=== PATIENT | female | born 1975 | race Two or more races ===

== ENCOUNTER 2017-01-01 10:35 | Inpatient (IN) | payer MEDICARE ==
[~2017-01-01] VITALS: Ht 172.7 cm; Wt 93.0 kg
[~2017-01-01 10:35] MED LIST: ALPR1TAB2 PO; AMLO10TA2 PO; BACL20TA PO; CARI350T PO; GABA600T2 PO; LISI40TA4 PO; METO100T3 PO; ZOLP10TA2 PO
--- NOTE | 2017-01-01 10:40 | NUR ---
AAOX3, CAME TO ER C/O LEFT UPPER EXTREMITY NUMBNESS AND WEAKNESS NOTED AT 0500. RR IS EVEN AND UNLABORED WITH NAD NOTED. SKIN IS WARM AND DRY. FACE SYMMETRICAL, SPEECH COHERENT. PATIENT ABLE TO MOVE ALL EXTREMITIES WITHOUT LIMITATION. DR LOMBARDI AT BS FOR YANET.
--- NOTE | 2017-01-01 10:48 | NUR ---
dr tobar ed provider spoke to dr rice tele neurologist.
[2017-01-01] MEDS ORDERED: IOHEXOL-350 100 ML VIAL IV ONE (10:51)
[2017-01-01 11:17] LABS: BASOPHILS % (AUTO) 0.4 % (0.0-2.0); EOSINOPHILS # (AUTO) 0.1 /CMM (0.0-0.7); EOSINOPHILS % (AUTO) 1.1 % (0.0-6.0); HEMATOCRIT 32 % (33-45); HEMOGLOBIN 10.6 g/dL (11.5-14.8); LYMPHOCYTES % (AUTO) 18.3 % (20.0-44.0); MEAN CORPUSCULAR HEMOGLOBIN 28 PG (26.0-33.0); MEAN CORPUSCULAR HGB CONC 33 g/dl (31.0-36.0); MEAN CORPUSCULAR VOLUME 84 fL (82-100); MONOCYTES # (AUTO) 0.7 /CMM (0.1-1.30); MONOCYTES % (AUTO) 6.3 % (2.0-12.0); NEUTROPHILS # (AUTO) 7.9 /CMM (1.8-8.9); NEUTROPHILS % (AUTO) 73.9 % (43.0-81.0); PLATELET COUNT (AUTO) 332 /CMM (150-450); RDW COEFFICIENT OF VARIATION 13.5 (11.5-15.0); RED BLOOD CELL COUNT(AUTO) 3.85 MIL/uL (4.0-5.2); WHITE BLOOD COUNT (AUTO) 10.8 K/uL (4.3-11.0)
[2017-01-01 11:25] LABS: CALCIUM, SERUM 7.9 mg/dL (8.5-10.1); CARBON DIOXIDE 21 mmol/L (21-32); CHLORIDE 109 mmol/L (98-107); CREATININE 0.7 mg/dL (0.6-1.3); GLUCOSE 121 mg/dL (74-106); POTASSIUM 3.2 mmol/L (3.5-5.1); SODIUM SERUM 140 mmol/L (136-145); UREA NITROGEN, BLOOD 13 mg/dL (7-18)
[2017-01-01] MEDS ORDERED: OMEP40CA37 PO (11:25)
[2017-01-01] MEDS ORDERED: METO-295 PO (11:25)
[2017-01-01] MEDS ORDERED: ALPR0.255 PO (11:25)
[2017-01-01] MEDS ORDERED: MORP30TA PO (11:25)
[2017-01-01] MEDS ORDERED: SERT50TA PO (11:25)
[2017-01-01] MEDS ORDERED: HYDR-552 PO (11:25)
[2017-01-01] MEDS ORDERED: METO25TA6 PO (11:25)
[2017-01-01] MEDS ORDERED: GABA-534 PO (11:25)
[2017-01-01] MEDS ORDERED: DESI10TA3 PO (11:25)
[2017-01-01] MEDS ORDERED: ONDA4TAB5 PO (11:25)
[2017-01-01] MEDS ORDERED: BACL10TA PO (11:25)
[2017-01-01] MEDS ORDERED: FLUT16SP16 NS (11:25)
[2017-01-01 11:29] LABS: INR 0.93 (0.87-1.13); PROTHROMBIN TIME 9.7 SECS (9.5-12.7)
[2017-01-01 11:30] LABS: ALANINE AMINOTRANSFERASE 85 U/L (12-78); ALKALINE PHOSPHATASE 206 U/L (46-116); ASPARTATE AMINOTRANSFERASE 158 U/L (15-37); BILIRUBIN,TOTAL 0.1 mg/dL (0.2-1.0); TOTAL PROTEIN, SERUM 6.8 g/dL (6.4-8.2)
--- NOTE | 2017-01-01 11:30 | NUR ---
Patient is resting comfortably in bed with eyes closed. Easily aroused. VSS
[2017-01-01 11:32] LABS: TROPONIN I < 0.017 ng/mL (0.00-0.056)
[2017-01-01] MEDS ORDERED: ASPIRIN 325 MG TABLET ONE (12:29)
[2017-01-01] MEDS ORDERED: FLUTICASONE PROPIONATE 16 GM BOTTLE NS PRN (12:30)
[2017-01-01] MEDS ORDERED: ALPRAZOLAM 0.25 MG TABLET PO PRN (12:30)
[2017-01-01] MEDS ORDERED: HYDROCODONE/APAP 5/325MG 1 EACH TABLET PO PRN (12:30)
[2017-01-01] MEDS ORDERED: ASPIRIN 325 MG TABLET PO ONE (12:30)
[2017-01-01] MEDS ORDERED: Medication Not On Formulary EA (Ondansetron Hcl (Zofran) 4 MG) PO PRN (12:30)
--- NOTE | 2017-01-01 12:39 | NUR ---
Report given to NAVDEEP Heller for [facility] Tele 112
[2017-01-01] MEDS ORDERED: MAG HYDROX/AL HYDROX/SIMETH 30 ML UDC PO PRN (13:00)
[2017-01-01] MEDS ORDERED: ACETAMINOPHEN 325 MG TABLET PO PRN (13:00)
[2017-01-01] MEDS ORDERED: Z GUARD REMEDY 2 OZ OINT TP PRN (13:00)
[2017-01-01] MEDS ORDERED: ZOLPIDEM TARTRATE 5 MG TABLET PO PRN (13:00)
[2017-01-01] MEDS ORDERED: MAGNESIUM HYDROXIDE 30 ML UDC PO PRN (13:00)
[2017-01-01 13:12] LABS: BASOPHILS % (AUTO) 0.2 % (0.0-2.0); EOSINOPHILS # (AUTO) 0.1 /CMM (0.0-0.7); EOSINOPHILS % (AUTO) 1.1 % (0.0-6.0); HEMATOCRIT 31 % (33-45); LYMPHOCYTES # (AUTO) 2.3 /CMM (0.8-4.8); LYMPHOCYTES % (AUTO) 19.2 % (20.0-44.0); MEAN CORPUSCULAR HEMOGLOBIN 27 PG (26.0-33.0); MEAN CORPUSCULAR HGB CONC 33 g/dl (31.0-36.0); MEAN CORPUSCULAR VOLUME 83 fL (82-100); MONOCYTES # (AUTO) 1.1 /CMM (0.1-1.30); MONOCYTES % (AUTO) 9.1 % (2.0-12.0); NEUTROPHILS # (AUTO) 8.4 /CMM (1.8-8.9); NEUTROPHILS % (AUTO) 70.4 % (43.0-81.0); PLATELET COUNT (AUTO) 306 /CMM (150-450); RDW COEFFICIENT OF VARIATION 14.6 (11.5-15.0); RED BLOOD CELL COUNT(AUTO) 3.68 MIL/uL (4.0-5.2)
[2017-01-01 13:33] LABS: INR 0.95 (0.87-1.13); PROTHROMBIN TIME 9.9 SECS (9.5-12.7)
[2017-01-01 13:36] LABS: CREATININE 0.6 mg/dL (0.6-1.3); POTASSIUM 3.5 mmol/L (3.5-5.1)
[2017-01-01 13:47] LABS: BILIRUBIN,TOTAL 0.1 mg/dL (0.2-1.0); TOTAL PROTEIN, SERUM 6.7 g/dL (6.4-8.2)
[2017-01-01 13:48] LABS: THYROID STIMULATING HORMONE 0.765 uIU/mL (0.358-3.74)
[2017-01-01] MEDS: GABAPENTIN 300 MG CAPSULE PO SCH ×2 (14:30→17:12)
[2017-01-01] MEDS: BACLOFEN (10 MG) 10 MG TABLET PO SCH ×2 (14:30→17:12)
[2017-01-01] MEDS: LISINOPRIL (20MG) 20 MG TABLET PO SCH (14:32)
[2017-01-01] MEDS: CARISOPRODOL 350 MG TABLET PO SCH ×3 (15:28→21:37)
[2017-01-01] MEDS: MORPHINE SULFATE SR 15 MG TABLET.SA PO SCH ×2 (15:28→21:00)
[2017-01-01] MEDS ORDERED: ENOXAPARIN SODIUM 40 MG/0.4 ML DISP.SYRIN SQ SCH (17:00)
[2017-01-01] MEDS ORDERED: MORPHINE SULFATE IR 15 MG TABLET PO SCH (17:00)
[2017-01-01] MEDS: METOCLOPRAMIDE HCL 10 MG TABLET PO PRN ×2 (17:34→21:43)
[2017-01-01] MEDS: BLOOD SUGAR DIAGNOSTIC 1 EACH STRIP IN SCH ×3 (17:34→21:52)
[2017-01-01] MEDS: ONDANSETRON HCL/PF 4 MG/2 ML VIAL IVP PRN ×2 (17:34→21:43)
--- NOTE | 2017-01-01 19:30 | NUR ---
SALES AND MARKETING COORDINATOR INITIAL NOTES RECEIVED PATIENT SITTING ON CHAIR AT BEDSIDE WITH FAMILY AT BEDSIDE. PATIENT AWAKE A/OX3. DENIES SOB. C/O 8/10 LEFT ARM AND UPPER AND LOWER BACK PAIN. ON TELE MONITOR SR 61. SKIN WARM AND DRY TO TOUCH. PATIENT ABLE TO WALK STEADY, NOTED LEFT ARM WEAKNESS. WITH RAC 18G PATENT AND INTACT. INFORMED PATIENT WILL PLACE OXYGEN FOR HEART SUPPORT. VERBALIZED UNDERSTANDING. SIDE RAILS UP AND LOCKED, BED KEPT AT LOWEST POSITION. CALL LIGHT KEPT WITHIN EASY REACH. WILL CONTINUE TO MONITOR.
[2017-01-01 20:00] VITALS: BP_SYST 119; BP_SYST 99; BP_DIAS 62; BP_DIAS 71
[2017-01-01] MEDS: METOPROLOL TARTRATE 50 MG TABLET PO SCH (21:00)
[2017-01-01] MEDS: HYDROCODONE/APAP 5/325MG 1 EACH TABLET PO PRN (21:38)
[2017-01-01] MEDS ORDERED: DESIPRAMINE HCL 10 MG TABLET PO SCH (22:00)
--- NOTE | 2017-01-01 22:26 | NUR ---
MS CONTIN NOT AVAILABLE AT UNIT MED CLEMENTINE, CALL RN WIDE AREA NETWORK ENGINEER, MEDICATION NOT AVAILABLE WITH HER, CHECKED ICU, MEDICATION ALSO NOT AVAILABLE. INFORMED WIDE AREA NETWORK ENGINEER. WILL INFORM PATIENT.
--- NOTE | 2017-01-01 23:41 | NUR ---
CONTINUITY OF CARE ENDORSED TO FLAVIO
[2017-01-02] VITALS: BP 106/63
[2017-01-02] MEDS: BLOOD SUGAR DIAGNOSTIC 1 EACH STRIP IN SCH ×5 (00:13→12:31)
[2017-01-02] MEDS: HYDROCODONE/APAP 5/325MG 1 EACH TABLET PO PRN ×2 (02:30→10:46)
[2017-01-02 04:00] VITALS: BP 104/68
[2017-01-02] MEDS: MORPHINE SULFATE SR 15 MG TABLET.SA PO SCH ×2 (05:00→12:32)
--- NOTE | 2017-01-02 05:26 | NUR ---
0500 MS CONTIN NOT GIVEN AT THIS TIME NOT IN PEXIS, PHARMACY TO DELIVER MEDICATION IN AM ENDORSED BY CLARENCE CHARGE NURSE, PT AWARE. DENIES PAIN AT THIS, NORCO GIVEN .
--- NOTE | 2017-01-02 06:45 | NUR ---
DIRECTOR BEHAVIORAL HEALTH CLOSING NOTES ENDORSED PATIENT ASLEEP IN BED. PATIENT AWAKE A/OX3. DENIES SOB. C/O 8/10 LEFT ARM AND UPPER AND LOWER BACK PAIN, NORCO PRN GIVEN WITH EFFECT. ON TELE MONITOR SR 61. SKIN WARM AND DRY TO TOUCH. PATIENT ABLE TO WALK STEADY, NOTED LEFT ARM WEAKNESS. WITH RAC 18G PATENT AND INTACT. INFORMED PATIENT INFORMED PT MS CONTIN FOR 0500 AM WILL BE GIVEN SOON PHARMACY IS OPEN. SIDE RAILS UP AND LOCKED, BED KEPT AT LOWEST POSITION. CALL LIGHT KEPT WITHIN EASY REACH. WILL CONTINUE TO MONITOR.
--- NOTE | 2017-01-02 07:05 | NUR ---
RAIL SETTER OPENING NOTES RECEIVED PT FROM NIGHTSHIFT NURSE IN STABLE CONDITION. PT IS A/O X3. NO SOB OR SIGNS OF DISTRESS NOTED. BREATHING IS EVEN AND UNLABORED. PT. REPORTS AN ACHING PAIN IN HER BACK RATED A 9/10. MILD-MODERATE WEAKNESS NOTED ON PT'S LEFT SIDE PARTICULARLY HER LEFT UPPER EXTREMITY. PT IS SINUS RHYTHM ON THE TELE MONITOR WITH A HR OF 72. IV NOTED TO BE PATENT AND INTACT. NO REDNESS OR SIGN OF INFILTRATION NOTED. BED IN LOW LOCKED POSITION, SIDE RAILS UP X2, CALL LIGHT WITHIN REACH. WILL CONTINUE TO MONITOR.
[2017-01-02 07:22] LABS: BASOPHILS % (AUTO) 0.2 % (0.0-2.0); EOSINOPHILS # (AUTO) 0.2 /CMM (0.0-0.7); EOSINOPHILS % (AUTO) 2.1 % (0.0-6.0); HEMATOCRIT 30 % (33-45); HEMOGLOBIN 9.9 g/dL (11.5-14.8); LYMPHOCYTES # (AUTO) 2.7 /CMM (0.8-4.8); LYMPHOCYTES % (AUTO) 29.4 % (20.0-44.0); MEAN CORPUSCULAR HEMOGLOBIN 28 PG (26.0-33.0); MEAN CORPUSCULAR HGB CONC 33 g/dl (31.0-36.0); MEAN CORPUSCULAR VOLUME 83 fL (82-100); MONOCYTES % (AUTO) 11.2 % (2.0-12.0); NEUTROPHILS # (AUTO) 5.3 /CMM (1.8-8.9); NEUTROPHILS % (AUTO) 57.1 % (43.0-81.0); PLATELET COUNT (AUTO) 292 /CMM (150-450); RDW COEFFICIENT OF VARIATION 14.8 (11.5-15.0); RED BLOOD CELL COUNT(AUTO) 3.57 MIL/uL (4.0-5.2); WHITE BLOOD COUNT (AUTO) 9.3 K/uL (4.3-11.0)
[2017-01-02] MEDS ORDERED: PANTOPRAZOLE 40 MG TABLET.DR PO SCH (07:30)
[2017-01-02 07:36] LABS: CALCIUM, SERUM 7.9 mg/dL (8.5-10.1); CREATININE 0.5 mg/dL (0.6-1.3); MAGNESIUM 1.8 mg/dL (1.8-2.4); PHOSPHORUS 4.3 mg/dL (2.5-4.9); POTASSIUM 3.7 mmol/L (3.5-5.1)
[2017-01-02 08:00] VITALS: BP 109/64
[2017-01-02] MEDS: METOPROLOL TARTRATE 50 MG TABLET PO SCH (08:30)
[2017-01-02] MEDS: GABAPENTIN 300 MG CAPSULE PO SCH ×2 (08:30→12:34)
[2017-01-02] MEDS: BACLOFEN (10 MG) 10 MG TABLET PO SCH ×2 (08:30→12:30)
[2017-01-02] MEDS: LISINOPRIL (20MG) 20 MG TABLET PO SCH (08:31)
[2017-01-02] MEDS: METOCLOPRAMIDE HCL 10 MG TABLET PO PRN (08:36)
[2017-01-02] MEDS ORDERED: ASPIRIN 325 MG TABLET PO SCH (09:00)
[2017-01-02] MEDS ORDERED: AMLODIPINE BESYLATE 10 MG TABLET PO SCH (09:00)
[2017-01-02] MEDS ORDERED: SERTRALINE HCL 50 MG TABLET PO SCH (09:00)
[2017-01-02 12:00] VITALS: BP 123/70
[2017-01-02] MEDS ORDERED: CARISOPRODOL 350 MG TABLET PO SCH (12:00)
--- NOTE | 2017-01-02 13:33 | NUR ---
PERFORMANCE ENGINEERMETAL TEMPLATE MAKER NOTES PT WAS DISCHARGE FROM UNIT IN STABLE CONDITION. ALL NEEDS WERE MET DURING SHIFT AND ORDERS CARRIED OUT ACCORDINGLY. STROKE EDUCATION PROVIDED TO BOTH THE PATIENT AND HER FATHER. PT VERBALIZED UNDERSTANDING OF STROKE EDUCATION ALONG WITH DISCHARGE INSTRUCTIONS. ALL DISCHARGE PAPERWORK WAS SIGNED BY PT. ALL BELONGINGS TAKE HOME WITH PT. PT LEFT VIA PRIVATE VEHICLE DRIVEN BY HER FATHER.
== END 2017-01-02 17:38 | disposition home or self-care (01) | DRG 74 ==
LOC: ER 10:39 → TELE1 12:35
PROVIDERS: ADMIT Internal Medicine; ATTEND Internal Medicine
DX: G62.9 Polyneuropathy, unspecified (principal); I10 Essential (primary) hypertension; R53.1 Weakness; E66.9 Obesity, unspecified; G89.4 Chronic pain syndrome; G93.2 Benign intracranial hypertension; F17.210 Nicotine dependence, cigarettes, uncomplicated; K21.9 Gastro-esophageal reflux disease without esophagitis; Z98.84 Bariatric surgery status; D64.9 Anemia, unspecified; R74.0 Nonspecific elevation of levels of transaminase and lactic acid dehydrogenase [LDH]; Z68.31 Body mass index [BMI] 31.0-31.9, adult; E87.6 Hypokalemia
CPT/HCPCS: 36415; 70450-TC; 70496-TC; 70498-TC; 71010-TC; 80048-TC; 80053-TC; 80061-TC; 80076-TC; 82962-TC; 83735-TC; 83880; 84100-TC; 84443-TC; 84484-TC; 84703-TC; 85025-TC; 85652-TC; 85730-TC; 87081-TC; 92611-TC; A4606; J1650; J2405; J8597; Q9967; Z7610

== ENCOUNTER 2018-05-17 12:56 | Emergency (ER) | payer MEDICARE ==
[~2018-05-17] VITALS: Ht 167.6 cm; Wt 74.8 kg
[~2018-05-17 12:56] MED LIST changes: +ALPR0.255 PO; -ALPR1TAB2 PO; -AMLO10TA2 PO; +AMLO10TA7 PO; +BACL10TA PO; -BACL20TA PO; +DESI10TA3 PO; +FLUT16SP16 NS; +GABA-534 PO; -GABA600T2 PO; +HYDR-4384 PO; +METO-295 PO; -METO100T3 PO; +METO25TA6 PO; +MORP30TA PO; +OMEP40CA37 PO; +ONDA4TAB5 PO; +SERT50TA PO
--- NOTE | 2018-05-17 13:25 | NUR ---
BIB MOTHER FOR SYNCOPAL EPISODE YESTERDAY MORNING, ALSO C/O MID STERNAL CHEST PAIN, RADIATING THROUGH TO THE BACK. TO ER BED 8, HOOKED TO MONIOTR, AWAITING MD HOLT
--- NOTE | 2018-05-17 13:37 | NUR ---
ADITYA ROUSE AT BEDSIDE
[2018-05-17 13:54] LABS: BASOPHILS % (AUTO) 0.6 % (0.0-2.0); EOSINOPHILS % (AUTO) 1.2 % (0.0-6.0); HEMATOCRIT 32 % (33-45); HEMOGLOBIN 9.8 g/dL (11.5-14.8); LYMPHOCYTES # (AUTO) 2.4 /CMM (0.8-4.8); MEAN CORPUSCULAR HGB CONC 30 g/dl (31.0-36.0); MEAN CORPUSCULAR VOLUME 72 fL (82-100); MONOCYTES # (AUTO) 0.6 /CMM (0.1-1.30); MONOCYTES % (AUTO) 10.1 % (2.0-12.0); NEUTROPHILS # (AUTO) 2.4 /CMM (1.8-8.9); NEUTROPHILS % (AUTO) 44.1 % (43.0-81.0); PLATELET COUNT (AUTO) 349 /CMM (150-450); RED BLOOD CELL COUNT(AUTO) 4.49 MIL/uL (4.0-5.2); WHITE BLOOD COUNT (AUTO) 5.5 K/uL (4.3-11.0)
[2018-05-17] MEDS ORDERED: IV NS 0.9% 1,000 ML BAG IV ONE (14:00)
[2018-05-17 14:08] LABS: CALCIUM, SERUM 8.5 mg/dL (8.5-10.1); CARBON DIOXIDE 28 mmol/L (21-32); CHLORIDE 106 mmol/L (98-107); CREATININE 0.7 mg/dL (0.6-1.3); GLUCOSE 99 mg/dL (74-106); SODIUM SERUM 140 mmol/L (136-145); UREA NITROGEN, BLOOD 23 mg/dL (7-18)
[2018-05-17 14:16] LABS: ALANINE AMINOTRANSFERASE 134 U/L (12-78); ALBUMIN 3.5 g/dL (3.4-5.0); ALKALINE PHOSPHATASE 213 U/L (46-116); ASPARTATE AMINOTRANSFERASE 72 U/L (15-37); BILIRUBIN,DIRECT 0.1 mg/dL (0.0-0.2); BILIRUBIN,TOTAL 0.1 mg/dL (0.2-1.0); TOTAL PROTEIN, SERUM 7.5 g/dL (6.4-8.2)
[2018-05-17 14:27] LABS: APPEARANCE,URINE BLOODY (CLEAR); BILIRUBIN,URINE MODERATE (NEGATIVE); BLOOD, URINE Large Ery/uL (NEGATIVE); COLOR,URINE Red (YELLOW); KETONES,URINE 15 (NEGATIVE); LEUKOCYTE ESTERASE ,URINE Large (NEGATIVE); NITRITE, URINE Negative (NEGATIVE); PH,URINE 5.5 (5.0-8.0); PROTEIN,URINE >=300 mg/dl (NEGATIVE); UGLUCOSE Negative (NEGATIVE)
[2018-05-17 14:39] LABS: BACTERIA,URINE Few /HPF (None Seen); RBC,URINE TOO NUMEROUS TO COUN /HPF (0-2); SQUAMOUS EPITHELIAL CELL,UR Few /HPF (None Seen); WBC,URINE 21-50 /HPF (0-3)
--- NOTE | 2018-05-17 16:50 | NUR ---
IV removed. Catheter intact and site benign. Pressure and 4x4 applied to site. No bleeding noted.Patient discharged to home in stable condition. Written and verbal after care instructions given. Patient verbalizes understanding of instruction.
[2018-05-17 16:51] VITALS: BP 125/72
== END 2018-05-17 16:52 | disposition home or self-care (01) ==
LOC: ER 12:57
DX: R55 Syncope and collapse (principal); N39.0 Urinary tract infection, site not specified; I10 Essential (primary) hypertension; D64.9 Anemia, unspecified; G89.29 Other chronic pain; Z98.890 Other specified postprocedural states; Z88.8 Allergy status to other drugs, medicaments and biological substances; Z88.1 Allergy status to other antibiotic agents; Z91.040 Latex allergy status; Z79.899 Other long term (current) drug therapy
CPT/HCPCS: 36415; 71045; 80048; 80076; 81001; 83690; 84484; 84703; 85025; 85730; 87086; 93005; 96360; 99284; A4606; J7030; 81000-TC

== ENCOUNTER 2022-04-12 20:38 | Inpatient (IN) | payer MEDICARE, OTHER ==
[~2022-04-12] VITALS: Ht 167.6 cm; Wt 88.0 kg
[~2022-04-12 20:38] MED LIST changes: +AMLO-213 PO; -AMLO10TA7 PO; +LISI40TA13 PO; -LISI40TA4 PO; +OMEP40CA21 PO; -OMEP40CA37 PO
[2022-04-12] MEDS ORDERED: IV LR 1000 ML 1,000 ML IV ONE ×2 (22:00→23:00)
[2022-04-12 22:26] LABS: ALBUMIN 2.6 g/dL (3.4-5.0); BILIRUBIN,DIRECT 0.2 mg/dL (0.0-0.2); BILIRUBIN,TOTAL 0.3 mg/dL (0.2-1.0); CALCIUM, SERUM 6.5 mg/dL (8.5-10.1); CREATININE 7.3 mg/dL (0.6-1.3); POTASSIUM 5.4 mmol/L (3.5-5.1); TOTAL PROTEIN, SERUM 6.7 g/dL (6.4-8.2)
[2022-04-12 22:40] LABS: BASOPHILS # (AUTO) 0.1 K/uL (0.0-0.2); BASOPHILS % (AUTO) 0.4 % (0.0-2.0); EOSINOPHILS % (AUTO) 0.6 % (0.0-6.0); HEMATOCRIT 33 % (33-45); HEMOGLOBIN 9.9 g/dL (11.5-14.8); LYMPHOCYTES # (AUTO) 2.1 K/uL (0.8-4.8); LYMPHOCYTES % (AUTO) 11.1 % (20.0-44.0); MEAN CORPUSCULAR HGB CONC 30 g/dl (31.0-36.0); MEAN CORPUSCULAR VOLUME 73 fL (82-100); MONOCYTES % (AUTO) 5.3 % (2.0-12.0); NEUTROPHILS # (AUTO) 15.7 K/uL (1.8-8.9); NEUTROPHILS % (AUTO) 82.6 % (43.0-81.0); PLATELET COUNT (AUTO) 344 K/uL (150-450); RED BLOOD CELL COUNT(AUTO) 4.53 MIL/uL (4.0-5.2); WHITE BLOOD COUNT (AUTO) 19.1 K/uL (4.3-11.0)
[2022-04-12] MEDS ORDERED: PIPERACILLIN /TAZOBACTAM 3.375 G VIAL IV ONE (22:57)
[2022-04-12] MEDS ORDERED: PIPERACILLIN /TAZOBACTAM 3.375 G in IV D5W 50 ML IV ONE (23:00)
[2022-04-12 23:09] LABS: BILIRUBIN,URINE 1+ (NEGATIVE); COLOR,URINE YELLOW (YELLOW); LEUKOCYTE ESTERASE ,URINE NEGATIVE (NEGATIVE); NITRITE, URINE NEGATIVE (NEGATIVE); PH,URINE 5.5 (5.0-8.0); PROTEIN,URINE 3+ mg/dl (NEGATIVE); UGLUCOSE NEGATIVE (NEGATIVE); UROBILINOGEN,URINE 0.2 EU/dL (0.2)
[2022-04-12 23:18] LABS: SITE, VBG Other; VBG COHb 1.2 %; VBG MetHb 0.3 %; VBG O2Hb 60.9 %; VBG OXYGEN SATURATION 61.8 %
[2022-04-12 23:55] LABS: BACTERIA,URINE Moderate /HPF (None Seen)
[2022-04-12 23:56] LABS: HYALINE CASTS, URINE Rare /LPF (None Seen)
[2022-04-13] MEDS ORDERED: SODIUM BICARBONATE SYR 50 MEQ/50 ML DISP.SYRIN IV ONE
[2022-04-13] MEDS ORDERED: IV LR 500 ML IV ONE (00:30)
[2022-04-13] MEDS ORDERED: FOSI40TA5 PO (00:54)
[2022-04-13] MEDS ORDERED: DOXY100C2 PO (00:54)
[2022-04-13] MEDS ORDERED: Sodium Bicarbonate 150 MEQ in IV NS 0.9% 1,000 ML IV PRN (01:00)
[2022-04-13] MEDS ORDERED: Z GUARD REMEDY 4 OZ OINT TP PRN (01:00)
[2022-04-13 01:24] LABS: BAND % (MANUAL) 1 % (0.0-5.0); LYMPHOCYTES % (MANUAL) 16 % (16-48); MONOCYTES % (MANUAL) 5 % (0-11.0); NEUTROPHILS % (MANUAL) 78 (42-76)
[2022-04-13 02:03] LABS: CREATININE, URINE 161.1 MG/DL (30.0-125.0)
[2022-04-13] MEDS ORDERED: SODIUM BICARBONATE SYR 50 MEQ/50 ML DISP.SYRIN ONE (02:10)
[2022-04-13 02:16] LABS: URINE TOTAL PROTEIN 611.4 mg/dL (0-11.9)
[2022-04-13] MEDS ORDERED: CEFTRIAXONE 1 G VIAL ONE (02:48)
[2022-04-13] MEDS: CEFTRIAXONE 1 G in IV D5W 50 ML IV SCH ×2 (02:50→21:45)
[2022-04-13 04:00] VITALS: BP 101/82
[2022-04-13] MEDS ORDERED: METRONIDAZOLE 500MG/ NS 100ML 100 ML IV ONE (05:22)
[2022-04-13] MEDS: METRONIDAZOLE 500MG/ NS 100ML 500 MG in PREMIX 1 EA IV SCH ×3 (05:25→20:30)
[2022-04-13] MEDS ORDERED: Sodium Bicarbonate 150 MEQ in IV NS 0.9% 1,000 ML IV SCH (06:17)
[2022-04-13 07:40] LABS: BASOPHILS % (AUTO) 0.3 % (0.0-2.0); EOSINOPHILS % (AUTO) 0.9 % (0.0-6.0); HEMATOCRIT 31 % (33-45); LYMPHOCYTES # (AUTO) 1.9 K/uL (0.8-4.8); LYMPHOCYTES % (AUTO) 16.7 % (20.0-44.0); MEAN CORPUSCULAR HGB CONC 29 g/dl (31.0-36.0); MEAN CORPUSCULAR VOLUME 79 fL (82-100); MONOCYTES # (AUTO) 0.6 K/uL (0.1-1.30); MONOCYTES % (AUTO) 5.4 % (2.0-12.0); NEUTROPHILS # (AUTO) 8.9 K/uL (1.8-8.9); NEUTROPHILS % (AUTO) 76.7 % (43.0-81.0); PLATELET COUNT (AUTO) 249 K/uL (150-450); RED BLOOD CELL COUNT(AUTO) 3.94 MIL/uL (4.0-5.2); WHITE BLOOD COUNT (AUTO) 11.6 K/uL (4.3-11.0)
[2022-04-13] MEDS: PANTOPRAZOLE 40 MG TABLET.DR PO SCH (07:58)
[2022-04-13 08:00] VITALS: BP 89/56
[2022-04-13 08:01] LABS: ALBUMIN 2.1 g/dL (3.4-5.0); BILIRUBIN,TOTAL 0.2 mg/dL (0.2-1.0); CALCIUM, SERUM 6.2 mg/dL (8.5-10.1); CREATININE 6.2 mg/dL (0.6-1.3); MAGNESIUM 2.2 mg/dL (1.8-2.4); POTASSIUM 4.4 mmol/L (3.5-5.1); TOTAL PROTEIN, SERUM 5.7 g/dL (6.4-8.2)
[2022-04-13] MEDS: HEPARIN SODIUM, PORCINE 5000 UNITS/1 ML VIAL SQ SCH ×2 (08:35→20:31)
[2022-04-13] MEDS ORDERED: PANT40TA49 PO (08:49)
[2022-04-13 09:51] LABS: THYROID STIMULATING HORMONE 0.061 uIU/mL (0.358-3.74)
[2022-04-13 12:00] VITALS: BP 88/55
[2022-04-13] MEDS: Sodium Bicarbonate 150 MEQ in IV NS 0.9% 1,000 ML IV SCH (12:19)
[2022-04-13] MEDS ORDERED: METRONIDAZOLE 500MG/ NS 100ML 500 MG in PREMIX 1 EA IV SCH (13:30)
[2022-04-13 16:00] VITALS: BP 90/52
[2022-04-13 20:00] VITALS: BP 104/58
[2022-04-13] MEDS: BACLOFEN (10 MG) 10 MG TABLET PO SCH (20:30)
[2022-04-14] VITALS: BP 105/64
[2022-04-14] MEDS: Sodium Bicarbonate 150 MEQ in IV NS 0.9% 1,000 ML IV SCH ×2 (00:24→12:13)
[2022-04-14 04:00] VITALS: BP 126/60
[2022-04-14] MEDS: METRONIDAZOLE 500MG/ NS 100ML 500 MG in PREMIX 1 EA IV SCH ×2 (05:18→13:06)
[2022-04-14 06:31] LABS: BASOPHILS % (AUTO) 0.2 % (0.0-2.0); EOSINOPHILS % (AUTO) 0.2 % (0.0-6.0); HEMATOCRIT 27 % (33-45); HEMOGLOBIN 8.7 g/dL (11.5-14.8); LYMPHOCYTES # (AUTO) 1.3 K/uL (0.8-4.8); LYMPHOCYTES % (AUTO) 12.8 % (20.0-44.0); MEAN CORPUSCULAR HGB CONC 32 g/dl (31.0-36.0); MEAN CORPUSCULAR VOLUME 70 fL (82-100); MONOCYTES # (AUTO) 0.8 K/uL (0.1-1.30); NEUTROPHILS # (AUTO) 8.2 K/uL (1.8-8.9); NEUTROPHILS % (AUTO) 78.8 % (43.0-81.0); PLATELET COUNT (AUTO) 257 K/uL (150-450); WHITE BLOOD COUNT (AUTO) 10.5 K/uL (4.3-11.0)
[2022-04-14] MEDS: PANTOPRAZOLE 40 MG TABLET.DR PO SCH (07:21)
[2022-04-14 07:26] LABS: CREATININE 2.8 mg/dL (0.6-1.3); MAGNESIUM 1.6 mg/dL (1.8-2.4); PHOSPHORUS 4.6 mg/dL (2.5-4.9)
[2022-04-14 07:39] LABS: CALCIUM, SERUM 5.8 mg/dL (8.5-10.1); POTASSIUM 2.6 mmol/L (3.5-5.1)
[2022-04-14 08:00] VITALS: BP 136/67
[2022-04-14] MEDS: POTASSIUM CL. PREMIX PERIPHER. 50 ML IV SCH ×4 (08:51→12:11)
[2022-04-14] MEDS: GABAPENTIN 300 MG CAPSULE PO SCH ×3 (08:52→16:52)
[2022-04-14] MEDS: BACLOFEN (10 MG) 10 MG TABLET PO SCH ×2 (08:52→13:06)
[2022-04-14] MEDS: HEPARIN SODIUM, PORCINE 5000 UNITS/1 ML VIAL SQ SCH ×2 (08:54→20:47)
[2022-04-14] MEDS: NICOTINE PATCH (7MG) 7 MG PATCH.TD24 TD SCH (09:09)
[2022-04-14 12:00] VITALS: BP 112/77
[2022-04-14] MEDS: ONDANSETRON HCL/PF 4 MG/2 ML VIAL IVP PRN ×2 (13:02→20:47)
[2022-04-14] MEDS: METRONIDAZOLE 500 MG TABLET PO SCH ×2 (14:00→20:46)
[2022-04-14] MEDS ORDERED: Magnesium 1GM/D5W 100ML PREMIX 100 ML IV SCH (14:00)
[2022-04-14] MEDS ORDERED: Magnesium 1GM/D5W 100ML PREMIX PIGGYBACK IV ONE (15:00)
[2022-04-14 16:00] VITALS: BP 124/80
[2022-04-14 20:00] VITALS: BP 136/87
[2022-04-14] MEDS: CEFTRIAXONE 2 G in IV D5W 50 ML IV SCH (20:46)
[2022-04-14] MEDS: CLOTRIMAZOLE 1% 15 GM TUBE TP SCH (22:30)
[2022-04-15] VITALS: BP 129/82
[2022-04-15] MEDS: Sodium Bicarbonate 150 MEQ in IV NS 0.9% 1,000 ML IV SCH ×2 (00:08→11:08)
[2022-04-15] MEDS: ACETAMINOPHEN 325 MG TABLET PO PRN ×2 (02:19→09:00)
[2022-04-15 04:00] VITALS: BP 125/82
[2022-04-15] MEDS: METRONIDAZOLE 500 MG TABLET PO SCH ×3 (04:21→21:06)
[2022-04-15 07:09] LABS: BASOPHILS % (AUTO) 0.1 % (0.0-2.0); EOSINOPHILS % (AUTO) 0.1 % (0.0-6.0); HEMATOCRIT 27 % (33-45); HEMOGLOBIN 8.9 g/dL (11.5-14.8); LYMPHOCYTES # (AUTO) 1.2 K/uL (0.8-4.8); LYMPHOCYTES % (AUTO) 15.7 % (20.0-44.0); MEAN CORPUSCULAR HGB CONC 32 g/dl (31.0-36.0); MEAN CORPUSCULAR VOLUME 70 fL (82-100); MONOCYTES # (AUTO) 0.6 K/uL (0.1-1.30); MONOCYTES % (AUTO) 7.9 % (2.0-12.0); NEUTROPHILS # (AUTO) 5.7 K/uL (1.8-8.9); NEUTROPHILS % (AUTO) 76.2 % (43.0-81.0); PLATELET COUNT (AUTO) 272 K/uL (150-450); RED BLOOD CELL COUNT(AUTO) 3.92 MIL/uL (4.0-5.2); WHITE BLOOD COUNT (AUTO) 7.5 K/uL (4.3-11.0)
[2022-04-15 07:35] LABS: CALCIUM, SERUM 6.7 mg/dL (8.5-10.1); CREATININE 1.1 mg/dL (0.6-1.3); MAGNESIUM 1.4 mg/dL (1.8-2.4); PHOSPHORUS 2.5 mg/dL (2.5-4.9)
[2022-04-15 07:40] LABS: POTASSIUM 2.2 mmol/L (3.5-5.1)
[2022-04-15 08:00] VITALS: BP 140/66
[2022-04-15 08:06] LABS: *ANA ANTI-CENTROMERE B AB <0.2 AI (0.0-0.9); *ANA ANTI-DNA(DS) AB, QN <1 IU/mL (0-9); *ANA ANTI-JO-1 <0.2 AI (0.0-0.9); *ANA ANTICHROMATIN ANTIBODY <0.2 AI (0.0-0.9); *ANA RNP ANTIBODIES <0.2 AI (0.0-0.9); *ANA SJOGREN'S ANTI-SS-A 0.2 AI (0.0-0.9); *ANA SJOGREN'S ANTI-SS-B <0.2 AI (0.0-0.9); *ANAANTI-SCLERODERMA-70 AB <0.2 AI (0.0-0.9); *ANASMITH AB <0.2 AI (0.0-0.9)
[2022-04-15] MEDS: PANTOPRAZOLE 40 MG TABLET.DR PO SCH (08:09)
[2022-04-15] MEDS: GABAPENTIN 300 MG CAPSULE PO SCH ×3 (08:09→16:29)
[2022-04-15] MEDS: NICOTINE PATCH (7MG) 7 MG PATCH.TD24 TD SCH (08:09)
[2022-04-15] MEDS: HEPARIN SODIUM, PORCINE 5000 UNITS/1 ML VIAL SQ SCH ×3 (08:11→21:52)
[2022-04-15] MEDS: CLOTRIMAZOLE 1% 15 GM TUBE TP SCH ×2 (08:12→16:29)
[2022-04-15] MEDS ORDERED: POTASSIUM CHLORIDE 10 MEQ TABLET.SA PO ONE ×2 (09:30→11:00)
[2022-04-15] MEDS ORDERED: POTASSIUM CHLORIDE 10 MEQ/50 ML PREMIXED IVPB FOR PERIPHERAL LINE IV ONE (09:30)
[2022-04-15] MEDS: POTASSIUM CL. PREMIX PERIPHER. 50 ML IV SCH ×8 (10:00→18:33)
[2022-04-15 11:07] LABS: *SPE A/G RATIO 0.7 (0.7-1.7); *SPE ALPHA-1-GLOBULIN 0.5 g/dL (0.0-0.4); *SPE ALPHA-2-GLOBULIN 0.7 g/dL (0.4-1.0); *SPE BETA GLOBULIN 0.8 g/dL (0.7-1.3); *SPE M-SPIKE Not Observed g/dL (Not Observed)
[2022-04-15] MEDS: Magnesium 1GM/D5W 100ML PREMIX 100 ML IV SCH ×4 (11:30→16:19)
[2022-04-15 12:00] VITALS: BP 127/85
[2022-04-15 16:00] VITALS: BP 131/72
[2022-04-15 20:00] VITALS: BP 146/74
[2022-04-15] MEDS: CEFTRIAXONE 2 G in IV D5W 50 ML IV SCH (21:06)
[2022-04-16] VITALS: BP 132/84
[2022-04-16 04:00] VITALS: BP 159/91
[2022-04-16] MEDS: METRONIDAZOLE 500 MG TABLET PO SCH ×3 (05:30→21:00)
[2022-04-16 06:09] LABS: BASOPHILS % (AUTO) 0.1 % (0.0-2.0); HEMATOCRIT 29 % (33-45); HEMOGLOBIN 9.1 g/dL (11.5-14.8); LYMPHOCYTES # (AUTO) 1.6 K/uL (0.8-4.8); LYMPHOCYTES % (AUTO) 26.4 % (20.0-44.0); MEAN CORPUSCULAR HGB CONC 32 g/dl (31.0-36.0); MEAN CORPUSCULAR VOLUME 71 fL (82-100); MONOCYTES # (AUTO) 0.6 K/uL (0.1-1.30); MONOCYTES % (AUTO) 9.4 % (2.0-12.0); NEUTROPHILS # (AUTO) 3.9 K/uL (1.8-8.9); NEUTROPHILS % (AUTO) 64.1 % (43.0-81.0); PLATELET COUNT (AUTO) 248 K/uL (150-450); RED BLOOD CELL COUNT(AUTO) 4.01 MIL/uL (4.0-5.2); WHITE BLOOD COUNT (AUTO) 6.1 K/uL (4.3-11.0)
[2022-04-16 06:42] LABS: CALCIUM, SERUM 8.1 mg/dL (8.5-10.1); MAGNESIUM 2.1 mg/dL (1.8-2.4); PHOSPHORUS 2.7 mg/dL (2.5-4.9)
[2022-04-16 06:56] LABS: BILIRUBIN,URINE 1+ (NEGATIVE); COLOR,URINE YELLOW (YELLOW); LEUKOCYTE ESTERASE ,URINE NEGATIVE (NEGATIVE); NITRITE, URINE NEGATIVE (NEGATIVE); PH,URINE 6.5 (5.0-8.0); PROTEIN,URINE 1+ mg/dl (NEGATIVE); UGLUCOSE NEGATIVE (NEGATIVE); UROBILINOGEN,URINE 0.2 EU/dL (0.2)
[2022-04-16 07:13] LABS: POTASSIUM 2.3 mmol/L (3.5-5.1)
[2022-04-16 07:13] LABS: BACTERIA,URINE Few /HPF (None Seen); SQUAMOUS EPITHELIAL CELL,UR Moderate /HPF (None Seen)
[2022-04-16 07:57] LABS: CREATININE, URINE 150.7 MG/DL (30.0-125.0)
[2022-04-16 08:00] VITALS: BP 148/88
[2022-04-16] MEDS: PANTOPRAZOLE 40 MG TABLET.DR PO SCH (08:03)
[2022-04-16] MEDS: CLOTRIMAZOLE 1% 15 GM TUBE TP SCH ×2 (08:03→16:30)
[2022-04-16] MEDS: GABAPENTIN 300 MG CAPSULE PO SCH ×3 (08:04→16:28)
[2022-04-16] MEDS: HEPARIN SODIUM, PORCINE 5000 UNITS/1 ML VIAL SQ SCH ×2 (08:05→20:47)
[2022-04-16] MEDS: NICOTINE PATCH (7MG) 7 MG PATCH.TD24 TD SCH (08:05)
[2022-04-16] MEDS: Potassium Chloride 40 MEQ in IV NS 0.9% 1,000 ML IV SCH ×2 (10:25→19:55)
[2022-04-16] MEDS: ALPRAZOLAM 0.25 MG TABLET PO SCH ×2 (11:30→16:28)
[2022-04-16] MEDS ORDERED: LORAZEPAM INJ 2 MG/ML VIAL IV ONE (11:30)
[2022-04-16 12:00] VITALS: BP 150/88
[2022-04-16] MEDS: risperiDONE 1 MG TABLET PO SCH ×2 (12:55→16:28)
[2022-04-16 16:00] VITALS: BP 141/93
[2022-04-16] MEDS: ACETAMINOPHEN 325 MG TABLET PO PRN (16:47)
[2022-04-16 20:00] VITALS: BP 156/94
[2022-04-16] MEDS: CEFTRIAXONE 2 G in IV D5W 50 ML IV SCH (20:55)
[2022-04-17] VITALS: BP 140/83
[2022-04-17 04:00] VITALS: BP 151/99
[2022-04-17] MEDS: METRONIDAZOLE 500 MG TABLET PO SCH ×3 (05:00→22:24)
[2022-04-17] MEDS: Potassium Chloride 40 MEQ in IV NS 0.9% 1,000 ML IV SCH ×2 (05:26→16:34)
[2022-04-17 06:20] LABS: HEMATOCRIT 29 % (33-45); HEMOGLOBIN 9.2 g/dL (11.5-14.8); LYMPHOCYTES # (AUTO) 2.5 K/uL (0.8-4.8); LYMPHOCYTES % (AUTO) 25.8 % (20.0-44.0); MEAN CORPUSCULAR HGB CONC 32 g/dl (31.0-36.0); MEAN CORPUSCULAR VOLUME 70 fL (82-100); MONOCYTES # (AUTO) 1.2 K/uL (0.1-1.30); MONOCYTES % (AUTO) 12.4 % (2.0-12.0); NEUTROPHILS # (AUTO) 6.1 K/uL (1.8-8.9); NEUTROPHILS % (AUTO) 61.8 % (43.0-81.0); PLATELET COUNT (AUTO) 249 K/uL (150-450); RED BLOOD CELL COUNT(AUTO) 4.06 MIL/uL (4.0-5.2); WHITE BLOOD COUNT (AUTO) 9.9 K/uL (4.3-11.0)
[2022-04-17] MEDS: PANTOPRAZOLE 40 MG TABLET.DR PO SCH (07:30)
[2022-04-17 07:40] LABS: CALCIUM, SERUM 7.8 mg/dL (8.5-10.1); CREATININE 0.8 mg/dL (0.6-1.3); MAGNESIUM 1.7 mg/dL (1.8-2.4); PHOSPHORUS 2.8 mg/dL (2.5-4.9); POTASSIUM 3.2 mmol/L (3.5-5.1)
[2022-04-17 08:00] VITALS: BP 148/93
[2022-04-17] MEDS: ALPRAZOLAM 0.25 MG TABLET PO SCH ×2 (08:14→19:01)
[2022-04-17] MEDS: risperiDONE 1 MG TABLET PO SCH ×3 (08:14→19:01)
[2022-04-17] MEDS: GABAPENTIN 300 MG CAPSULE PO SCH ×3 (08:14→19:01)
[2022-04-17] MEDS: NICOTINE PATCH (7MG) 7 MG PATCH.TD24 TD SCH (09:17)
[2022-04-17] MEDS: HEPARIN SODIUM, PORCINE 5000 UNITS/1 ML VIAL SQ SCH ×2 (09:17→22:31)
[2022-04-17] MEDS: CLOTRIMAZOLE 1% 15 GM TUBE TP SCH ×2 (09:17→19:03)
[2022-04-17] MEDS ORDERED: LORAZEPAM INJ 2 MG/ML VIAL IV PRN (10:30)
[2022-04-17 12:00] VITALS: BP 149/85
[2022-04-17] MEDS ORDERED: POTASSIUM CHLORIDE 20 MEQ TAB.PRT.SR PO ONE (12:00)
[2022-04-17] MEDS: Magnesium 1GM/D5W 100ML PREMIX 100 ML IV SCH ×2 (12:03→13:04)
[2022-04-17 16:00] VITALS: BP 150/90
[2022-04-17 20:00] VITALS: BP 148/93
[2022-04-17] MEDS: CEFTRIAXONE 2 G in IV D5W 50 ML IV SCH (22:24)
[2022-04-18] VITALS (8 sets, daily range): BP systolic 156–181; BP diastolic 92–105
[2022-04-18 01:30] LABS: BASOPHILS % (MANUAL) 0 % (0.0-2.0); EOSINOPHILS % (MANUAL) 0 % (0-4); LYMPHOCYTES % (MANUAL) 21 % (16-48); MONOCYTES % (MANUAL) 15 % (0-11.0); NEUTROPHILS % (MANUAL) 64 (42-76)
[2022-04-18] MEDS: METRONIDAZOLE 500 MG TABLET PO SCH ×3 (05:04→21:41)
[2022-04-18] MEDS: Potassium Chloride 40 MEQ in IV NS 0.9% 1,000 ML IV SCH ×2 (05:31→13:38)
[2022-04-18] MEDS ORDERED: LABETALOL 20 MG/4 ML VIAL IV ONE (06:00)
[2022-04-18 06:02] LABS: BASOPHILS % (AUTO) 0.2 % (0.0-2.0); EOSINOPHILS % (AUTO) 0.1 % (0.0-6.0); HEMATOCRIT 30 % (33-45); HEMOGLOBIN 9.4 g/dL (11.5-14.8); LYMPHOCYTES # (AUTO) 3.5 K/uL (0.8-4.8); LYMPHOCYTES % (AUTO) 19.5 % (20.0-44.0); MEAN CORPUSCULAR HGB CONC 31 g/dl (31.0-36.0); MEAN CORPUSCULAR VOLUME 72 fL (82-100); MONOCYTES # (AUTO) 1.3 K/uL (0.1-1.30); MONOCYTES % (AUTO) 7.2 % (2.0-12.0); NEUTROPHILS # (AUTO) 13.1 K/uL (1.8-8.9); PLATELET COUNT (AUTO) 218 K/uL (150-450); RED BLOOD CELL COUNT(AUTO) 4.19 MIL/uL (4.0-5.2); WHITE BLOOD COUNT (AUTO) 17.9 K/uL (4.3-11.0)
[2022-04-18 06:25] LABS: CALCIUM, SERUM 7.8 mg/dL (8.5-10.1); CREATININE 0.8 mg/dL (0.6-1.3); PHOSPHORUS 3.4 mg/dL (2.5-4.9)
[2022-04-18] MEDS: GABAPENTIN 300 MG CAPSULE PO SCH ×2 (08:58→13:35)
[2022-04-18] MEDS: risperiDONE 1 MG TABLET PO SCH ×3 (08:58→17:01)
[2022-04-18] MEDS: ACETAMINOPHEN 325 MG TABLET PO PRN (08:58)
[2022-04-18] MEDS: ALPRAZOLAM 0.25 MG TABLET PO SCH ×2 (08:58→17:01)
[2022-04-18] MEDS: NICOTINE PATCH (7MG) 7 MG PATCH.TD24 TD SCH (08:58)
[2022-04-18] MEDS: PANTOPRAZOLE 40 MG TABLET.DR PO SCH (08:58)
[2022-04-18] MEDS: HEPARIN SODIUM, PORCINE 5000 UNITS/1 ML VIAL SQ SCH ×2 (08:59→21:00)
[2022-04-18] MEDS: CLOTRIMAZOLE 1% 15 GM TUBE TP SCH ×2 (09:00→17:02)
[2022-04-18 10:14] LABS: CALCIUM, SERUM 7.8 mg/dL (8.5-10.1); CREATININE 0.8 mg/dL (0.6-1.3)
[2022-04-18 10:27] LABS: BILIRUBIN,URINE 1+ (NEGATIVE); COLOR,URINE YELLOW (YELLOW); LEUKOCYTE ESTERASE ,URINE NEGATIVE (NEGATIVE); NITRITE, URINE NEGATIVE (NEGATIVE); PH,URINE 7.5 (5.0-8.0); PROTEIN,URINE TRACE mg/dl (NEGATIVE); UGLUCOSE NEGATIVE (NEGATIVE); UROBILINOGEN,URINE 0.2 EU/dL (0.2)
[2022-04-18 10:48] LABS: RBC,URINE 0-2 /HPF (0-2)
[2022-04-18 10:49] LABS: BACTERIA,URINE Few /HPF (None Seen); COARSE GRANULAR CASTS,URINE Rare /LPF (None Seen); HYALINE CASTS, URINE Rare /LPF (None Seen); SQUAMOUS EPITHELIAL CELL,UR Few /HPF (None Seen); WBC,URINE 0-2 /HPF (0-3)
[2022-04-18] MEDS ORDERED: IV D5/0.45 NACL 1,000 ML IV ONE (11:00)
[2022-04-18] MEDS: CEFEPIME 2 GM in IV D5W 100 ML IV SCH ×2 (13:34→21:43)
[2022-04-18] MEDS ORDERED: GADOTERATE MEGLUMINE 10 MMOL/20 ML VIAL IV ONE (16:14)
[2022-04-18] MEDS ORDERED: hydrALAZINE HCL IV 20 MG VIAL IV PRN (17:00)
[2022-04-18] MEDS: MORPHINE SULFATE INJ 2 MG/ML DISP.SYRIN IV PRN (18:25)
[2022-04-18] MEDS: AMLODIPINE BESYLATE 5 MG TABLET PO SCH (18:30)
[2022-04-18] MEDS ORDERED: METOPROLOL TARTRATE 50 MG TABLET PO SCH (18:30)
[2022-04-18] MEDS ORDERED: AMLODIPINE BESYLATE 2.5 MG TABLET ONE (21:58)
[2022-04-18] MEDS: METOPROLOL TARTRATE 50 MG TABLET PO SCH (22:06)
[2022-04-19] VITALS: BP 161/94
[2022-04-19] MEDS: Potassium Chloride 40 MEQ in IV NS 0.9% 1,000 ML IV SCH (02:28)
[2022-04-19 04:45] VITALS: BP 151/58
[2022-04-19] MEDS: CEFEPIME 2 GM in IV D5W 100 ML IV SCH ×3 (05:27→20:05)
[2022-04-19] MEDS: METRONIDAZOLE 500 MG TABLET PO SCH ×3 (05:41→20:06)
[2022-04-19 06:31] LABS: BASOPHILS % (AUTO) 0.1 % (0.0-2.0); EOSINOPHILS % (AUTO) 0.1 % (0.0-6.0); HEMATOCRIT 27 % (33-45); HEMOGLOBIN 8.3 g/dL (11.5-14.8); LYMPHOCYTES # (AUTO) 3.3 K/uL (0.8-4.8); LYMPHOCYTES % (AUTO) 17.6 % (20.0-44.0); MEAN CORPUSCULAR HGB CONC 30 g/dl (31.0-36.0); MEAN CORPUSCULAR VOLUME 74 fL (82-100); MONOCYTES # (AUTO) 0.7 K/uL (0.1-1.30); NEUTROPHILS # (AUTO) 14.5 K/uL (1.8-8.9); NEUTROPHILS % (AUTO) 78.2 % (43.0-81.0); PLATELET COUNT (AUTO) 230 K/uL (150-450); RED BLOOD CELL COUNT(AUTO) 3.69 MIL/uL (4.0-5.2); WHITE BLOOD COUNT (AUTO) 18.5 K/uL (4.3-11.0)
[2022-04-19 06:43] LABS: CALCIUM, SERUM 7.9 mg/dL (8.5-10.1); CREATININE 0.8 mg/dL (0.6-1.3); MAGNESIUM 1.9 mg/dL (1.8-2.4); PHOSPHORUS 3.2 mg/dL (2.5-4.9); POTASSIUM 3.2 mmol/L (3.5-5.1)
[2022-04-19] MEDS: PANTOPRAZOLE 40 MG TABLET.DR PO SCH (07:56)
[2022-04-19 08:00] VITALS: BP 131/88
[2022-04-19] MEDS ORDERED: IV D5W 1,000 ML IV SCH (08:00)
[2022-04-19] MEDS: HEPARIN SODIUM, PORCINE 5000 UNITS/1 ML VIAL SQ SCH ×2 (09:00→20:07)
[2022-04-19] MEDS: ACETAMINOPHEN 325 MG TABLET PO PRN (09:08)
[2022-04-19] MEDS: risperiDONE 1 MG TABLET PO SCH ×3 (09:09→16:24)
[2022-04-19] MEDS: METOPROLOL TARTRATE 50 MG TABLET PO SCH (09:09)
[2022-04-19] MEDS: CLOTRIMAZOLE 1% 15 GM TUBE TP SCH ×2 (09:09→16:24)
[2022-04-19] MEDS: AMLODIPINE BESYLATE 5 MG TABLET PO SCH (09:11)
[2022-04-19] MEDS: NICOTINE PATCH (7MG) 7 MG PATCH.TD24 TD SCH (09:11)
[2022-04-19] MEDS: ALPRAZOLAM 0.25 MG TABLET PO SCH ×2 (09:17→16:23)
[2022-04-19] MEDS ORDERED: POTASSIUM CHLORIDE 20 MEQ POWDER PACKET GT ONE (09:30)
[2022-04-19] MEDS: Potassium Chloride 30 MEQ in IV D5W 1,000 ML IV SCH ×2 (10:12→18:23)
[2022-04-19 12:00] VITALS: BP 117/87
[2022-04-19] MEDS: DOXYCYCLINE HYCLATE (100 MG) 100 MG TABLET PO SCH ×2 (12:01→20:06)
[2022-04-19] MEDS: JEVITY 1.2 CAL 1,000 ML BOTTLE GT PRN (13:15)
[2022-04-19 16:00] VITALS: BP 126/85
[2022-04-19 20:00] VITALS: BP 123/65
[2022-04-20] VITALS: BP 128/69
[2022-04-20 04:00] VITALS: BP 134/82
[2022-04-20] MEDS: Potassium Chloride 30 MEQ in IV D5W 1,000 ML IV SCH (04:01)
[2022-04-20] MEDS: CEFEPIME 2 GM in IV D5W 100 ML IV SCH ×3 (04:01→20:43)
[2022-04-20] MEDS: ACETAMINOPHEN 325 MG TABLET PO PRN ×2 (04:03→16:23)
[2022-04-20] MEDS: METRONIDAZOLE 500 MG TABLET PO SCH ×3 (04:03→20:42)
[2022-04-20 08:00] VITALS: BP 139/89
[2022-04-20] MEDS: PANTOPRAZOLE 40 MG TABLET.DR PO SCH (08:00)
[2022-04-20 08:08] LABS: BASOPHILS # (AUTO) 0.3 K/uL (0.0-0.2); BASOPHILS % (AUTO) 1.5 % (0.0-2.0); EOSINOPHILS % (AUTO) 0.4 % (0.0-6.0); HEMATOCRIT 27 % (33-45); HEMOGLOBIN 7.9 g/dL (11.5-14.8); LYMPHOCYTES % (AUTO) 14.9 % (20.0-44.0); MEAN CORPUSCULAR HGB CONC 29 g/dl (31.0-36.0); MEAN CORPUSCULAR VOLUME 75 fL (82-100); MONOCYTES # (AUTO) 0.7 K/uL (0.1-1.30); MONOCYTES % (AUTO) 3.5 % (2.0-12.0); NEUTROPHILS # (AUTO) 15.9 K/uL (1.8-8.9); NEUTROPHILS % (AUTO) 79.7 % (43.0-81.0); PLATELET COUNT (AUTO) 282 K/uL (150-450); RED BLOOD CELL COUNT(AUTO) 3.62 MIL/uL (4.0-5.2); WHITE BLOOD COUNT (AUTO) 19.9 K/uL (4.3-11.0)
[2022-04-20 08:30] LABS: CALCIUM, SERUM 7.7 mg/dL (8.5-10.1); CREATININE 0.6 mg/dL (0.6-1.3); MAGNESIUM 1.8 mg/dL (1.8-2.4); PHOSPHORUS 2.7 mg/dL (2.5-4.9); POTASSIUM 4.9 mmol/L (3.5-5.1)
[2022-04-20] MEDS: DOXYCYCLINE HYCLATE (100 MG) 100 MG TABLET PO SCH ×2 (10:29→20:42)
[2022-04-20] MEDS: risperiDONE 1 MG TABLET PO SCH ×3 (10:29→16:23)
[2022-04-20] MEDS: METOPROLOL TARTRATE 50 MG TABLET PO SCH (10:30)
[2022-04-20] MEDS: NICOTINE PATCH (7MG) 7 MG PATCH.TD24 TD SCH (10:30)
[2022-04-20] MEDS: AMLODIPINE BESYLATE 5 MG TABLET PO SCH (10:32)
[2022-04-20] MEDS: ALPRAZOLAM 0.25 MG TABLET PO SCH ×2 (10:49→16:23)
[2022-04-20 12:00] VITALS: BP 153/90
[2022-04-20] MEDS: LEVOTHYROXINE INJ 100 MCG VIAL IV SCH (13:11)
[2022-04-20] MEDS: CLOTRIMAZOLE 1% 15 GM TUBE TP SCH ×2 (13:30→18:53)
[2022-04-20] MEDS: IV D5W 1,000 ML IV SCH (15:51)
[2022-04-20 16:00] VITALS: BP 139/89
[2022-04-20] MEDS: JEVITY 1.2 CAL 1,000 ML BOTTLE GT PRN (16:10)
[2022-04-20 20:00] VITALS: BP 138/85
[2022-04-21] VITALS: BP 144/86
[2022-04-21] MEDS: IV D5W 1,000 ML IV SCH ×3 (01:55→22:07)
[2022-04-21 04:00] VITALS: BP 136/79
[2022-04-21] MEDS: CEFEPIME 2 GM in IV D5W 100 ML IV SCH ×3 (04:33→21:49)
[2022-04-21] MEDS: METRONIDAZOLE 500 MG TABLET PO SCH (04:33)
[2022-04-21 07:14] LABS: BASOPHILS % (AUTO) 0.1 % (0.0-2.0); EOSINOPHILS % (AUTO) 0.6 % (0.0-6.0); HEMATOCRIT 26 % (33-45); HEMOGLOBIN 7.7 g/dL (11.5-14.8); LYMPHOCYTES # (AUTO) 3.2 K/uL (0.8-4.8); LYMPHOCYTES % (AUTO) 17.4 % (20.0-44.0); MEAN CORPUSCULAR HGB CONC 30 g/dl (31.0-36.0); MEAN CORPUSCULAR VOLUME 74 fL (82-100); MONOCYTES # (AUTO) 0.7 K/uL (0.1-1.30); MONOCYTES % (AUTO) 3.7 % (2.0-12.0); NEUTROPHILS # (AUTO) 14.6 K/uL (1.8-8.9); NEUTROPHILS % (AUTO) 78.2 % (43.0-81.0); PLATELET COUNT (AUTO) 280 K/uL (150-450); RED BLOOD CELL COUNT(AUTO) 3.47 MIL/uL (4.0-5.2); WHITE BLOOD COUNT (AUTO) 18.6 K/uL (4.3-11.0)
[2022-04-21 07:34] LABS: CALCIUM, SERUM 7.4 mg/dL (8.5-10.1); CREATININE 0.6 mg/dL (0.6-1.3); MAGNESIUM 1.5 mg/dL (1.8-2.4); PHOSPHORUS 3.1 mg/dL (2.5-4.9); POTASSIUM 3.4 mmol/L (3.5-5.1)
[2022-04-21 08:00] VITALS: BP 140/80
[2022-04-21 08:09] LABS: LYMPHOCYTES % (MANUAL) 16 % (16-48); MONOCYTES % (MANUAL) 6 % (0-11.0); NEUTROPHILS % (MANUAL) 78 (42-76)
[2022-04-21] MEDS: NICOTINE PATCH (7MG) 7 MG PATCH.TD24 TD SCH (08:32)
[2022-04-21] MEDS: AMLODIPINE BESYLATE 5 MG TABLET PO SCH (08:32)
[2022-04-21] MEDS: risperiDONE 1 MG TABLET PO SCH ×3 (08:33→16:48)
[2022-04-21] MEDS: DOXYCYCLINE HYCLATE (100 MG) 100 MG TABLET PO SCH ×2 (08:33→21:49)
[2022-04-21] MEDS: ALPRAZOLAM 0.25 MG TABLET PO SCH ×2 (08:33→16:47)
[2022-04-21] MEDS: METOPROLOL TARTRATE 50 MG TABLET PO SCH (08:33)
[2022-04-21] MEDS: PANTOPRAZOLE 40 MG TABLET.DR PO SCH (08:33)
[2022-04-21] MEDS: LEVOTHYROXINE INJ 100 MCG VIAL IV SCH (08:35)
[2022-04-21] MEDS: CLOTRIMAZOLE 1% 15 GM TUBE TP SCH ×2 (09:14→16:53)
[2022-04-21] MEDS ORDERED: POTASSIUM CHLORIDE 20 MEQ POWDER PACKET GT ONE (11:00)
[2022-04-21] MEDS: Magnesium 1GM/D5W 100ML PREMIX 100 ML IV SCH ×2 (11:26→12:35)
[2022-04-21 12:00] VITALS: BP 140/85
[2022-04-21] MEDS: METRONIDAZOLE 500 MG TABLET GT SCH ×2 (13:16→21:49)
[2022-04-21] MEDS: JEVITY 1.2 CAL 1,000 ML BOTTLE GT PRN (15:05)
[2022-04-21 16:00] VITALS: BP 149/82
[2022-04-21 20:00] VITALS: BP 134/86
[2022-04-21] MEDS: MORPHINE SULFATE INJ 2 MG/ML DISP.SYRIN IV PRN (22:37)
[2022-04-22] VITALS: BP 137/81
[2022-04-22 04:00] VITALS: BP 134/76
[2022-04-22] MEDS: METRONIDAZOLE 500 MG TABLET GT SCH (04:58)
[2022-04-22] MEDS: CEFEPIME 2 GM in IV D5W 100 ML IV SCH ×3 (04:58→21:41)
[2022-04-22 07:25] LABS: BASOPHILS % (AUTO) 0.2 % (0.0-2.0); EOSINOPHILS % (AUTO) 0.5 % (0.0-6.0); HEMATOCRIT 26 % (33-45); LYMPHOCYTES # (AUTO) 2.2 K/uL (0.8-4.8); MEAN CORPUSCULAR HGB CONC 31 g/dl (31.0-36.0); MEAN CORPUSCULAR VOLUME 74 fL (82-100); MONOCYTES # (AUTO) 0.8 K/uL (0.1-1.30); MONOCYTES % (AUTO) 5.1 % (2.0-12.0); NEUTROPHILS # (AUTO) 12.6 K/uL (1.8-8.9); NEUTROPHILS % (AUTO) 80.2 % (43.0-81.0); PLATELET COUNT (AUTO) 316 K/uL (150-450); RED BLOOD CELL COUNT(AUTO) 3.47 MIL/uL (4.0-5.2); WHITE BLOOD COUNT (AUTO) 15.7 K/uL (4.3-11.0)
[2022-04-22] MEDS: IV D5W 1,000 ML IV SCH ×2 (07:43→16:48)
[2022-04-22] MEDS: PANTOPRAZOLE 40 MG TABLET.DR PO SCH (07:44)
[2022-04-22] MEDS: LEVOTHYROXINE INJ 100 MCG VIAL IV SCH (07:44)
[2022-04-22 07:54] LABS: CALCIUM, SERUM 7.5 mg/dL (8.5-10.1); CREATININE 0.6 mg/dL (0.6-1.3); MAGNESIUM 1.7 mg/dL (1.8-2.4); PHOSPHORUS 3.8 mg/dL (2.5-4.9); POTASSIUM 3.3 mmol/L (3.5-5.1)
[2022-04-22 08:00] VITALS: BP 141/87
[2022-04-22] MEDS: NICOTINE PATCH (7MG) 7 MG PATCH.TD24 TD SCH (08:28)
[2022-04-22] MEDS: DOXYCYCLINE HYCLATE (100 MG) 100 MG TABLET PO SCH ×2 (08:28→21:40)
[2022-04-22] MEDS: risperiDONE 1 MG TABLET PO SCH ×3 (08:28→16:34)
[2022-04-22] MEDS: METOPROLOL TARTRATE 50 MG TABLET GT SCH (08:29)
[2022-04-22] MEDS: ALPRAZOLAM 0.25 MG TABLET PO SCH ×2 (08:29→16:35)
[2022-04-22] MEDS: AMLODIPINE BESYLATE 5 MG TABLET PO SCH (08:29)
[2022-04-22] MEDS: CLOTRIMAZOLE 1% 15 GM TUBE TP SCH ×2 (08:30→16:46)
[2022-04-22] MEDS ORDERED: MAGNESIUM OXIDE 400 MG TABLET PO ONE (10:30)
[2022-04-22] MEDS: POTASSIUM CL. PREMIX PERIPHER. 50 ML IV SCH ×2 (10:41→12:41)
[2022-04-22 12:00] VITALS: BP 138/75
[2022-04-22 16:00] VITALS: BP 128/74
[2022-04-22 16:29] LABS: CSF GLUCOSE 68 mg/dL (40-70); CSF PROTEIN 28.14 mg/dL (15-45)
[2022-04-22] MEDS: JEVITY 1.2 CAL 1,000 ML BOTTLE NG PRN (16:50)
[2022-04-22 20:00] VITALS: BP 133/73
[2022-04-23] VITALS: BP 107/67
[2022-04-23] MEDS: IV D5W 1,000 ML IV SCH ×2 (03:58→13:40)
[2022-04-23 04:00] VITALS: BP 123/78
[2022-04-23] MEDS: CEFEPIME 2 GM in IV D5W 100 ML IV SCH ×3 (04:01→20:49)
[2022-04-23] MEDS: MORPHINE SULFATE INJ 2 MG/ML DISP.SYRIN IV PRN ×3 (05:18→18:01)
[2022-04-23] MEDS: PANTOPRAZOLE 40 MG TABLET.DR PO SCH (06:52)
[2022-04-23 07:45] LABS: BASOPHILS % (AUTO) 0.2 % (0.0-2.0); EOSINOPHILS % (AUTO) 0.3 % (0.0-6.0); HEMATOCRIT 27 % (33-45); HEMOGLOBIN 8.2 g/dL (11.5-14.8); LYMPHOCYTES # (AUTO) 2.3 K/uL (0.8-4.8); LYMPHOCYTES % (AUTO) 13.7 % (20.0-44.0); MEAN CORPUSCULAR HGB CONC 30 g/dl (31.0-36.0); MEAN CORPUSCULAR VOLUME 76 fL (82-100); MONOCYTES % (AUTO) 5.8 % (2.0-12.0); NEUTROPHILS # (AUTO) 13.3 K/uL (1.8-8.9); PLATELET COUNT (AUTO) 399 K/uL (150-450); RED BLOOD CELL COUNT(AUTO) 3.59 MIL/uL (4.0-5.2); WHITE BLOOD COUNT (AUTO) 16.7 K/uL (4.3-11.0)
[2022-04-23] MEDS: LEVOTHYROXINE INJ 100 MCG VIAL IV SCH (07:45)
[2022-04-23 07:54] LABS: CREATININE 0.4 mg/dL (0.6-1.3); PHOSPHORUS 4.1 mg/dL (2.5-4.9); POTASSIUM 3.5 mmol/L (3.5-5.1)
[2022-04-23 08:00] VITALS: BP 128/81
[2022-04-23] MEDS: NICOTINE PATCH (7MG) 7 MG PATCH.TD24 TD SCH (08:46)
[2022-04-23] MEDS: risperiDONE 1 MG TABLET PO SCH ×3 (08:47→16:54)
[2022-04-23] MEDS: ALPRAZOLAM 0.25 MG TABLET PO SCH ×2 (08:47→16:55)
[2022-04-23] MEDS: DOXYCYCLINE HYCLATE (100 MG) 100 MG TABLET PO SCH ×2 (08:47→20:49)
[2022-04-23] MEDS: AMLODIPINE BESYLATE 5 MG TABLET PO SCH (08:48)
[2022-04-23] MEDS: METOPROLOL TARTRATE 50 MG TABLET GT SCH (08:49)
[2022-04-23] MEDS: CLOTRIMAZOLE 1% 15 GM TUBE TP SCH ×2 (09:29→16:55)
[2022-04-23 12:00] VITALS: BP 127/81
[2022-04-23 16:00] VITALS: BP 127/81
[2022-04-23] MEDS: JEVITY 1.2 CAL 1,000 ML BOTTLE NG PRN (18:03)
[2022-04-23 20:00] VITALS: BP 134/69
[2022-04-23] MEDS: GABAPENTIN 300 MG CAPSULE NG SCH (22:26)
[2022-04-24] VITALS: BP 136/67
[2022-04-24] MEDS: ACETAMINOPHEN 325 MG TABLET PO PRN ×2 (00:08→23:40)
[2022-04-24] MEDS: IV D5W 1,000 ML IV SCH ×3 (00:18→20:52)
[2022-04-24 03:17] LABS: BASOPHILS % (MANUAL) 0 % (0.0-2.0); EOSINOPHILS % (MANUAL) 0 % (0-4); LYMPHOCYTES % (MANUAL) 15 % (16-48); MONOCYTES % (MANUAL) 6 % (0-11.0); NEUTROPHILS % (MANUAL) 79 (42-76)
[2022-04-24 04:00] VITALS: BP 132/79
[2022-04-24] MEDS: CEFEPIME 2 GM in IV D5W 100 ML IV SCH (05:10)
[2022-04-24] MEDS: PANTOPRAZOLE 40 MG TABLET.DR PO SCH (07:29)
[2022-04-24] MEDS: LEVOTHYROXINE INJ 100 MCG VIAL IV SCH (07:54)
[2022-04-24 08:00] VITALS: BP 117/78
[2022-04-24] MEDS: NICOTINE PATCH (7MG) 7 MG PATCH.TD24 TD SCH (08:25)
[2022-04-24] MEDS: ALPRAZOLAM 0.25 MG TABLET PO SCH ×2 (08:26→17:17)
[2022-04-24] MEDS: risperiDONE 1 MG TABLET PO SCH ×3 (08:26→17:16)
[2022-04-24] MEDS: GABAPENTIN 300 MG CAPSULE NG SCH ×3 (08:26→17:16)
[2022-04-24] MEDS: DOXYCYCLINE HYCLATE (100 MG) 100 MG TABLET PO SCH (08:27)
[2022-04-24] MEDS: AMLODIPINE BESYLATE 5 MG TABLET PO SCH (08:29)
[2022-04-24] MEDS: METOPROLOL TARTRATE 50 MG TABLET GT SCH ×2 (08:30→17:18)
[2022-04-24] MEDS: CLOTRIMAZOLE 1% 15 GM TUBE TP SCH ×2 (08:32→17:11)
[2022-04-24 12:00] VITALS: BP 131/87
[2022-04-24 16:00] VITALS: BP 111/76
[2022-04-24 17:06] LABS: *CRYPTOCOCCUS AG, CSF Negative (Negative)
[2022-04-24] MEDS: JEVITY 1.2 CAL 1,000 ML BOTTLE NG PRN (17:50)
[2022-04-24 20:00] VITALS: BP 103/59
[2022-04-25] VITALS: BP 125/64
[2022-04-25 04:00] VITALS: BP 123/72
[2022-04-25] MEDS: IV D5W 1,000 ML IV SCH (05:48)
[2022-04-25 08:00] VITALS: BP 150/81
[2022-04-25] MEDS: PANTOPRAZOLE 40 MG TABLET.DR PO SCH (08:04)
[2022-04-25] MEDS: LEVOTHYROXINE SODIUM 100 MCG TABLET PO SCH (08:04)
[2022-04-25] MEDS: risperiDONE 1 MG TABLET PO SCH ×3 (08:33→16:16)
[2022-04-25] MEDS: GABAPENTIN 300 MG CAPSULE NG SCH ×3 (08:33→16:16)
[2022-04-25] MEDS: METOPROLOL TARTRATE 50 MG TABLET GT SCH ×2 (08:34→16:16)
[2022-04-25] MEDS: ALPRAZOLAM 0.25 MG TABLET PO SCH ×2 (08:40→16:16)
[2022-04-25] MEDS: NICOTINE PATCH (7MG) 7 MG PATCH.TD24 TD SCH (08:41)
[2022-04-25] MEDS: CLOTRIMAZOLE 1% 15 GM TUBE TP SCH ×2 (08:42→16:35)
[2022-04-25 12:00] VITALS: BP 136/74
[2022-04-25] MEDS: MORPHINE SULFATE INJ 2 MG/ML DISP.SYRIN IV PRN (12:48)
[2022-04-25] MEDS ORDERED: MAG HYDROX/AL HYDROX/SIMETH 30 ML UDC PO PRN (13:00)
[2022-04-25 16:00] VITALS: BP 145/72
[2022-04-25] MEDS: FERROUS SULFATE (325 MG) 325 MG/TAB TABLET PO SCH (16:16)
[2022-04-25 20:00] VITALS: BP 128/70
[2022-04-26] VITALS: BP 128/70
[2022-04-26 04:00] VITALS: BP 122/76
[2022-04-26] MEDS: MORPHINE SULFATE INJ 2 MG/ML DISP.SYRIN IV PRN (04:51)
[2022-04-26 07:17] LABS: BASOPHILS % (AUTO) 0.3 % (0.0-2.0); EOSINOPHILS % (AUTO) 0.4 % (0.0-6.0); HEMATOCRIT 25 % (33-45); HEMOGLOBIN 7.6 g/dL (11.5-14.8); LYMPHOCYTES # (AUTO) 1.5 K/uL (0.8-4.8); LYMPHOCYTES % (AUTO) 19.8 % (20.0-44.0); MEAN CORPUSCULAR HGB CONC 31 g/dl (31.0-36.0); MEAN CORPUSCULAR VOLUME 76 fL (82-100); MONOCYTES # (AUTO) 0.8 K/uL (0.1-1.30); MONOCYTES % (AUTO) 10.6 % (2.0-12.0); NEUTROPHILS # (AUTO) 5.1 K/uL (1.8-8.9); NEUTROPHILS % (AUTO) 68.9 % (43.0-81.0); PLATELET COUNT (AUTO) 489 K/uL (150-450); RED BLOOD CELL COUNT(AUTO) 3.25 MIL/uL (4.0-5.2); WHITE BLOOD COUNT (AUTO) 7.4 K/uL (4.3-11.0)
[2022-04-26 07:34] LABS: D-DIMER 4.61 mg/L(FEU (0.17-0.50)
[2022-04-26] MEDS: PANTOPRAZOLE 40 MG TABLET.DR PO SCH (07:35)
[2022-04-26] MEDS: FERROUS SULFATE (325 MG) 325 MG/TAB TABLET PO SCH ×2 (07:35→16:04)
[2022-04-26] MEDS: risperiDONE 1 MG TABLET PO SCH ×3 (07:35→16:04)
[2022-04-26] MEDS: GABAPENTIN 300 MG CAPSULE NG SCH ×3 (07:35→16:04)
[2022-04-26] MEDS: NICOTINE PATCH (7MG) 7 MG PATCH.TD24 TD SCH (07:35)
[2022-04-26] MEDS: CLOTRIMAZOLE 1% 15 GM TUBE TP SCH ×2 (07:35→16:07)
[2022-04-26] MEDS: LEVOTHYROXINE SODIUM 100 MCG TABLET PO SCH (07:35)
[2022-04-26] MEDS: ALPRAZOLAM 0.25 MG TABLET PO SCH ×2 (07:38→16:04)
[2022-04-26 07:41] LABS: C-REACTIVE PROTEIN 4.4 mg/dL (0.0-0.9)
[2022-04-26 08:00] VITALS: BP 126/77
[2022-04-26 08:11] LABS: CALCIUM, SERUM 8.3 mg/dL (8.5-10.1); CREATININE 0.5 mg/dL (0.6-1.3)
[2022-04-26] MEDS: METOPROLOL TARTRATE 50 MG TABLET GT SCH ×2 (08:38→16:07)
[2022-04-26] MEDS ORDERED: POTASSIUM CHLORIDE 20 MEQ POWDER PACKET PO SCH (11:30)
[2022-04-26 12:00] VITALS: BP 128/76
[2022-04-26 16:00] VITALS: BP 134/77
[2022-04-26 20:00] VITALS: BP 112/64
[2022-04-27] VITALS: BP 110/78
[2022-04-27 04:00] VITALS: BP 119/80
[2022-04-27] MEDS: PANTOPRAZOLE 40 MG TABLET.DR PO SCH (07:59)
[2022-04-27] MEDS: LEVOTHYROXINE SODIUM 100 MCG TABLET PO SCH (07:59)
[2022-04-27 08:00] VITALS: BP 122/62
[2022-04-27] MEDS: risperiDONE 1 MG TABLET PO SCH ×3 (08:18→16:19)
[2022-04-27] MEDS: FERROUS SULFATE (325 MG) 325 MG/TAB TABLET PO SCH ×2 (08:18→16:19)
[2022-04-27] MEDS: GABAPENTIN 300 MG CAPSULE NG SCH ×3 (08:18→16:19)
[2022-04-27] MEDS: NICOTINE PATCH (7MG) 7 MG PATCH.TD24 TD SCH (08:18)
[2022-04-27] MEDS: ALPRAZOLAM 0.25 MG TABLET PO SCH ×2 (08:18→16:19)
[2022-04-27] MEDS: METOPROLOL TARTRATE 50 MG TABLET GT SCH ×2 (08:19→16:20)
[2022-04-27] MEDS: CLOTRIMAZOLE 1% 15 GM TUBE TP SCH ×2 (08:22→16:04)
[2022-04-27 14:40] LABS: CALCIUM, SERUM 8.2 mg/dL (8.5-10.1); CREATININE 0.5 mg/dL (0.6-1.3); POTASSIUM 3.2 mmol/L (3.5-5.1)
[2022-04-27 16:00] VITALS: BP 113/71
[2022-04-27] MEDS ORDERED: POTASSIUM CHLORIDE 20 MEQ TAB.PRT.SR PO ONE (18:30)
[2022-04-27] MEDS: MORPHINE SULFATE INJ 2 MG/ML DISP.SYRIN IV PRN (21:51)
[2022-04-28] VITALS: BP 121/74
[2022-04-28 08:00] VITALS: BP 130/86
[2022-04-28 08:05] LABS: BASOPHILS % (AUTO) 0.5 % (0.0-2.0); HEMATOCRIT 25 % (33-45); HEMOGLOBIN 7.7 g/dL (11.5-14.8); LYMPHOCYTES # (AUTO) 1.4 K/uL (0.8-4.8); LYMPHOCYTES % (AUTO) 28.1 % (20.0-44.0); MEAN CORPUSCULAR HGB CONC 31 g/dl (31.0-36.0); MEAN CORPUSCULAR VOLUME 76 fL (82-100); MONOCYTES # (AUTO) 0.5 K/uL (0.1-1.30); MONOCYTES % (AUTO) 9.9 % (2.0-12.0); NEUTROPHILS # (AUTO) 3.1 K/uL (1.8-8.9); NEUTROPHILS % (AUTO) 60.5 % (43.0-81.0); PLATELET COUNT (AUTO) 507 K/uL (150-450); RED BLOOD CELL COUNT(AUTO) 3.25 MIL/uL (4.0-5.2); WHITE BLOOD COUNT (AUTO) 5.1 K/uL (4.3-11.0)
[2022-04-28] MEDS: LEVOTHYROXINE SODIUM 100 MCG TABLET PO SCH (08:19)
[2022-04-28] MEDS: METOPROLOL TARTRATE 50 MG TABLET GT SCH ×2 (08:19→16:18)
[2022-04-28] MEDS: FERROUS SULFATE (325 MG) 325 MG/TAB TABLET PO SCH ×2 (08:20→16:18)
[2022-04-28] MEDS: GABAPENTIN 300 MG CAPSULE NG SCH ×3 (08:20→16:16)
[2022-04-28] MEDS: PANTOPRAZOLE 40 MG TABLET.DR PO SCH (08:20)
[2022-04-28] MEDS: risperiDONE 1 MG TABLET PO SCH ×3 (08:20→16:18)
[2022-04-28] MEDS: ALPRAZOLAM 0.25 MG TABLET PO SCH ×2 (08:20→16:16)
[2022-04-28] MEDS: NICOTINE PATCH (7MG) 7 MG PATCH.TD24 TD SCH (08:21)
[2022-04-28] MEDS: CLOTRIMAZOLE 1% 15 GM TUBE TP SCH ×2 (08:21→16:19)
[2022-04-28 08:28] LABS: CALCIUM, SERUM 8.6 mg/dL (8.5-10.1); CREATININE 0.5 mg/dL (0.6-1.3); MAGNESIUM 1.6 mg/dL (1.8-2.4); PHOSPHORUS 4.5 mg/dL (2.5-4.9); POTASSIUM 3.3 mmol/L (3.5-5.1)
[2022-04-28] MEDS: POTASSIUM CHLORIDE 20 MEQ TAB.PRT.SR PO SCH ×3 (10:20→12:43)
[2022-04-28] MEDS ORDERED: MAGNESIUM OXIDE 400 MG TABLET PO ONE (11:30)
[2022-04-28] MEDS ORDERED: OLANZAPINE 10 MG VIAL IM ONE (12:00)
[2022-04-28 16:00] VITALS: BP 122/75
[2022-04-28 16:18] VITALS: BP 122/75
[2022-04-28] MEDS ORDERED: RISP1TAB7 PO (18:23)
[2022-04-28] MEDS ORDERED: METO50TA16 GT (18:23)
[2022-04-28] MEDS ORDERED: LEVO100T PO (18:23)
[2022-04-28] MEDS ORDERED: ALPR0.255 PO (18:23)
[2022-04-28] MEDS ORDERED: FERR325T28 PO (18:23)
[2022-04-28] MEDS ORDERED: GABA300C NG (18:23)
== END 2022-04-28 19:30 | disposition home health service (06) | DRG 871 ==
LOC: ER 20:39 → TELE1 04-13 01:56 → TELE-TD 04-13 02:06 → TELE1 04-17 10:18 → MEDSG1 04-25 08:16
PROVIDERS: ADMIT Registered Nurse; ATTEND Nurse Practitioner Acute Care
PROC: 05HD33Z Insertion of Infusion Device into Right Cephalic Vein, Percutaneous Approach (ICD-10-PCS; 2022-04-14)
PROC: 05HF33Z Insertion of Infusion Device into Left Cephalic Vein, Percutaneous Approach (ICD-10-PCS; 2022-04-15)
PROC: 009U3ZX Drainage of Spinal Canal, Percutaneous Approach, Diagnostic (ICD-10-PCS; principal; 2022-04-22)
PROC: B01BYZZ Fluoroscopy of Spinal Cord using Other Contrast (ICD-10-PCS; 2022-04-22)
DX: A41.9 Sepsis, unspecified organism (principal); E03.5 Myxedema coma; I63.81 Other cerebral infarction due to occlusion or stenosis of small artery; J69.0 Pneumonitis due to inhalation of food and vomit; N17.0 Acute kidney failure with tubular necrosis; J96.00 Acute respiratory failure, unspecified whether with hypoxia or hypercapnia; G92.8 Other toxic encephalopathy; E87.1 Hypo-osmolality and hyponatremia; F11.20 Opioid dependence, uncomplicated; E87.20 Acidosis, unspecified; N04.9 Nephrotic syndrome with unspecified morphologic changes; J98.11 Atelectasis; M62.82 Rhabdomyolysis; D68.9 Coagulation defect, unspecified; E87.0 Hyperosmolality and hypernatremia; C75.1 Malignant neoplasm of pituitary gland; G25.3 Myoclonus; Z20.822 Contact with and (suspected) exposure to COVID-19; G89.4 Chronic pain syndrome; Z98.890 Other specified postprocedural states; Z88.8 Allergy status to other drugs, medicaments and biological substances; Z88.1 Allergy status to other antibiotic agents; Z91.040 Latex allergy status; Z79.899 Other long term (current) drug therapy; Z98.2 Presence of cerebrospinal fluid drainage device; G40.909 Epilepsy, unspecified, not intractable, without status epilepticus; Z98.84 Bariatric surgery status; W19.XXXA Unspecified fall, initial encounter; Y92.009 Unspecified place in unspecified non-institutional (private) residence as the place of occurrence of the external cause; S09.90XA Unspecified injury of head, initial encounter; R26.9 Unspecified abnormalities of gait and mobility; E86.1 Hypovolemia; E83.39 Other disorders of phosphorus metabolism; K52.9 Noninfective gastroenteritis and colitis, unspecified; R74.01 Elevation of levels of liver transaminase levels; E86.0 Dehydration; Z68.35 Body mass index [BMI] 35.0-35.9, adult; E05.90 Thyrotoxicosis, unspecified without thyrotoxic crisis or storm; Z90.49 Acquired absence of other specified parts of digestive tract; R13.10 Dysphagia, unspecified; Z72.0 Tobacco use; Z86.018 Personal history of other benign neoplasm; E66.01 Morbid (severe) obesity due to excess calories; Z68.31 Body mass index [BMI] 31.0-31.9, adult; Z78.1 Physical restraint status; L30.4 Erythema intertrigo; E87.5 Hyperkalemia; D50.9 Iron deficiency anemia, unspecified; E83.42 Hypomagnesemia; E83.51 Hypocalcemia; E87.6 Hypokalemia; F43.10 Post-traumatic stress disorder, unspecified; R41.0 Disorientation, unspecified; F06.1 Catatonic disorder due to known physiological condition; I10 Essential (primary) hypertension; G93.2 Benign intracranial hypertension; F60.9 Personality disorder, unspecified; X58.XXXA Exposure to other specified factors, initial encounter; Y92.9 Unspecified place or not applicable
CPT/HCPCS: 31720; 36410; 36415; 62270; 70450-TC; 70553-TC; 71045-TC; 72125-TC; 76536-TC; 76770-TC; 80048-TC; 80053-TC; 80076-TC; 81001; 82378; 82533; 82570-TC; 82607-TC; 82728-TC; 82803-TC; 83540-TC; 83605-TC; 83615-TC; 83735-TC; 84100-TC; 84155; 84155-TC; 84165; 84300-TC; 84439-TC; 84443-TC; 84703-TC; 85025-TC; 85396; 85610-TC; 85730-TC; 86140-TC; 86225; 86235; 86431-TC; 86592; 86593; 86706; 86800; 86803; 87040-TC; 87081-TC; 87086-TC; 87177; 87209; 87806; 87899; 88108-TC; 88305-TC; 89051-TC; 92526; 92611-TC; 94799-TC; 95819-TC; 97112-TC; 97116-TC; 97530-TC; A4216; A6403; A9575; C9803; G0378; J0360; J0692; J0696; J1644; J2060; J2270; J2405; J2543; J3475; J3480; J3490; J7030; J7050; J7060; J7070; J7120

== ENCOUNTER 2022-05-28 11:08 | Emergency (ER) | payer MEDICARE ==
[~2022-05-28] VITALS: Ht 175.3 cm; Wt 98.0 kg
[~2022-05-28 11:08] MED LIST changes: -AMLO-213 PO; -BACL10TA PO; -CARI350T PO; -DESI10TA3 PO; +FERR325T28 PO; -FLUT16SP16 NS; -GABA-534 PO; +GABA300C NG; -HYDR-4384 PO; +LEVO100T PO; -LISI40TA13 PO; -METO-295 PO; -METO25TA6 PO; +METO50TA16 GT; -MORP30TA PO; -OMEP40CA21 PO; -ONDA4TAB5 PO; +RISP1TAB7 PO; -SERT50TA PO; -ZOLP10TA2 PO
--- NOTE | 2022-05-28 11:10 | NUR ---
CHAO 88 FROM HOME FOR HYPOTENSION. BP ON SCENE WAS 87/50. PT IS AAOX4. PLACED IN BED AND MONITOR. AWAITING MD ORDERS.
[2022-05-28] MEDS ORDERED: IV NS 0.9% 1,000 ML BAG IV ONE (11:30)
--- NOTE | 2022-05-28 11:30 | NUR ---
AT BEDSIDE FOR EVAL
--- NOTE | 2022-05-28 11:35 | NUR ---
XRAY AT BEDSIDE
--- NOTE | 2022-05-28 11:38 | NUR ---
PHYSICAL SCIENCE AIDE AT BEDSIDE FOR BLOOD DRAW. 20G LEFT AC SHEEP KILLER.
[2022-05-28 12:02] LABS: BASOPHILS % (AUTO) 0.3 % (0.0-2.0); EOSINOPHILS % (AUTO) 0.7 % (0.0-6.0); HEMATOCRIT 27 % (33-45); HEMOGLOBIN 8.6 g/dL (11.5-14.8); LYMPHOCYTES % (AUTO) 29.8 % (20.0-44.0); MEAN CORPUSCULAR HGB CONC 31 g/dl (31.0-36.0); MEAN CORPUSCULAR VOLUME 78 fL (82-100); MONOCYTES # (AUTO) 0.6 K/uL (0.1-1.30); MONOCYTES % (AUTO) 8.2 % (2.0-12.0); NEUTROPHILS # (AUTO) 4.2 K/uL (1.8-8.9); PLATELET COUNT (AUTO) 256 K/uL (150-450); WHITE BLOOD COUNT (AUTO) 6.8 K/uL (4.3-11.0)
[2022-05-28 12:29] LABS: ALANINE AMINOTRANSFERASE 55 U/L (12-78); ALBUMIN 1.8 g/dL (3.4-5.0); ALKALINE PHOSPHATASE 275 U/L (46-116); ASPARTATE AMINOTRANSFERASE 103 U/L (15-37); BILIRUBIN,DIRECT 0.5 mg/dL (0.0-0.2); BILIRUBIN,TOTAL 0.6 mg/dL (0.2-1.0); CALCIUM, SERUM 7.4 mg/dL (8.5-10.1); CARBON DIOXIDE 29 mmol/L (21-32); CHLORIDE 106 mmol/L (98-107); CREATININE 1.3 mg/dL (0.6-1.3); GLUCOSE 85 mg/dL (74-106); LIPASE 590 U/L (73-393); SODIUM SERUM 140 mmol/L (136-145); UREA NITROGEN, BLOOD 29 mg/dL (7-18)
[2022-05-28 12:33] LABS: POTASSIUM 2.7 mmol/L (3.5-5.1)
[2022-05-28] MEDS ORDERED: POTASSIUM CHLORIDE 20 MEQ POWDER PACKET ONE (13:24)
[2022-05-28] MEDS ORDERED: Calcium Gluconate 1GM/10ML 4.65 MEQ in IV NS 0.9% 100 ML IV ONE (13:30)
[2022-05-28] MEDS ORDERED: POTASSIUM CHLORIDE 20 MEQ POWDER PACKET PO ONE (13:30)
[2022-05-28 14:26] LABS: BILIRUBIN,URINE NEGATIVE (NEGATIVE); COLOR,URINE YELLOW (YELLOW); LEUKOCYTE ESTERASE ,URINE 1+ (NEGATIVE); NITRITE, URINE NEGATIVE (NEGATIVE); PROTEIN,URINE NEGATIVE (NEGATIVE); UGLUCOSE NEGATIVE (NEGATIVE); UROBILINOGEN,URINE 0.2 EU/dL (0.2)
--- NOTE | 2022-05-28 14:38 | NUR ---
Patient discharged to home in stable condition. Written and verbal after care instructions given. Patient verbalizes understanding of instruction. IV removed. Catheter intact and site benign. Pressure and 4x4 applied to site. No bleeding noted.
[2022-05-28 14:41] VITALS: BP 114/68
[2022-05-28 15:05] LABS: BACTERIA,URINE 1+ /HPF (None Seen); RBC,URINE 0-2 /HPF (0-2); SQUAMOUS EPITHELIAL CELL,UR Moderate /HPF (None Seen)
== END 2022-05-28 14:41 | disposition home or self-care (01) ==
LOC: ER 11:10
DX: E87.6 Hypokalemia (principal); M54.50 Low back pain, unspecified; G89.29 Other chronic pain; Z98.890 Other specified postprocedural states; Z91.040 Latex allergy status; Z79.899 Other long term (current) drug therapy; Z88.1 Allergy status to other antibiotic agents
CPT/HCPCS: 99285; 96365; 71045; 96361; 93005; 85025; 80048; 87086; 83690; 80076; 81001; 36415; 84484; J0610; J7030